=== PATIENT | female | born 1980 | race Caucasian/White ===

== ENCOUNTER → 2020-11-01 15:18 | Outpatient (CLI) | payer OTHER, SELFPAY ==
--- NOTE | ~2020-11-01 | MM_ITS ---
EXAMINATION: MM screening [facility] BI w raf HISTORY: Screening TECHNIQUE: Craniocaudal and mediolateral oblique 3-D tomosynthesis images were obtained and synthetic 2-D images were generated. CAD analysis was submitted and interpreted. COMPARISON: Comparison to multiple prior studies sequentially, with oldest reviewed study dated 02/2019. BREAST PARENCHYMAL COMPOSITION: The breasts are heterogenously dense, which may obscure small masses. FINDINGS: No significant change to bilateral breast masses, previously characterized as a cyst by margoth stanley. There is no evidence of suspicious mass, calcification, or architectural distortion to sugge st malignancy in either breast. There has been no suspicious interval change. IMPRESSION: 1. No mammographic evidence of malignancy. 2. Recommend routine screening mammography in one year. BI-RADS Category 2: Benign finding(s). Reviewed, dictated and finalized at location A.
== END ==
PROVIDERS: Visit Provider Obstetrics & Gynecology
DX: Z12.31 Encounter for screening mammogram for malignant neoplasm of breast (principal)
CPT/HCPCS: 77063; 77067

== ENCOUNTER → 2022-01-02 11:10 | Outpatient (CLI) | payer OTHER, SELFPAY ==
--- NOTE | ~2022-01-02 | MM_ITS ---
EXAMINATION: MM screening [facility] BI w raf HISTORY: Screening TECHNIQUE: Craniocaudal and mediolateral oblique 3-D tomosynthesis images were obtained and synthetic 2-D images were generated. CAD analysis was submitted and interpreted. COMPARISON: Comparison to multiple prior studies sequentially, with oldest reviewed study dated 02/2019. BREAST PARENCHYMAL COMPOSITION: The breasts are heterogenously dense, which may obscure small masses FINDINGS: There are benign-appearing bilateral breast masses which are stable or decreased in size co mpared with prior examinations. There is no evidence of suspicious mass, calcification, or architectu ral distortion to suggest malignancy in either breast. There has been no suspicious interval change. IMPRESSION: 1. No mammographic evidence of malignancy. 2. Recommend routine screening mammography in one year. BI-RADS Category 2: Benign finding(s). Reviewed, dictated and finalized at location A.
== END ==
PROVIDERS: PCP Family Medicine; Visit Provider Obstetrics & Gynecology
DX: Z12.31 Encounter for screening mammogram for malignant neoplasm of breast (principal)
CPT/HCPCS: 77063; 77067

== ENCOUNTER → 2023-03-16 13:59 | Outpatient (CLI) | payer OTHER, SELFPAY ==
--- NOTE | ~2023-03-16 | MM_ITS ---
EXAMINATION: MM screening [facility] BI w raf HISTORY: Screening mammogram TECHNIQUE: Craniocaudal and mediolateral oblique 3-D tomosynthesis images were obtained and synthetic 2-D images were generated. CAD analysis was submitted and interpreted. COMPARISON: 01/03/2022, 11/01/2020, 05/03/2019, 04/26/2019 BREAST PARENCHYMAL COMPOSITION: There are scattered areas of fibroglandular density. FINDINGS: Waxing and waning bilateral breast masses are consistent with benign findings. No suspiciou s mass, calcification, or architectural distortion are identified in either breast to suggest maligna ncy. There has been no suspicious interval change. IMPRESSION: 1. No mammographic evidence of malignancy. 2. Recommend routine screening mammography in one year. BI-RADS Category 2: Benign finding(s). Reviewed, dictated and finalized at location A.
== END ==
PROVIDERS: PCP Family Medicine; Visit Provider Obstetrics & Gynecology
DX: Z12.31 Encounter for screening mammogram for malignant neoplasm of breast (principal)
CPT/HCPCS: 77063; 77067

== ENCOUNTER 2024-11-22 15:05 | Outpatient (CLI) | payer OTHER, SELFPAY ==
--- NOTE | ~2024-11-22 | MM_ITS ---
EXAMINATION: MM screening [facility] BI w raf HISTORY: Screening TECHNIQUE: Craniocaudal and mediolateral oblique 3-D tomosynthesis images were obtained and synthetic 2-D images were generated. CAD analysis was submitted and interpreted. COMPARISON: Comparison to multiple prior studies sequentially, with oldest reviewed study dated 02/2019. BREAST PARENCHYMAL COMPOSITION: Not dense: There are scattered areas of fibroglandular density. FINDINGS: Bilateral obscured breast masses are stable or diminished in size compared with films, cons idered benign. There is no evidence of suspicious mass, calcification, or architectural distortion to suggest malignancy in either breast. There has been no suspicious interval change. IMPRESSION: 1. No mammographic evidence of malignancy. 2. Recommend routine screening mammography in one year. BI-RADS Category 2: Benign finding(s). Reviewed, dictated and finalized at location A.
== END 2024-11-22 15:06 | disposition home or self-care (01) ==
LOC: MICIMG 15:06
PROVIDERS: PCP Family Medicine; Visit Provider Obstetrics & Gynecology
DX: Z12.31 Encounter for screening mammogram for malignant neoplasm of breast (principal)
CPT/HCPCS: 77063; 77067